=== PATIENT | male | born 1960 | race African-American/Black ===

== ENCOUNTER 2020-04-08 10:14 | Outpatient (REF) | payer MEDICAID, SELFPAY | END 2020-04-08 10:15 | disposition home or self-care (01) | LOC: HO.LAB 10:14 | PROVIDERS: Visit Provider Internal Medicine | DX: Z20.828 Contact with and (suspected) exposure to other viral communicable diseases (principal) | CPT/HCPCS: C9803; U0003 ==

== ENCOUNTER 2022-11-18 09:17 | Outpatient (REF) | payer MEDICAID, SELFPAY ==
[2022-11-18 12:44] LABS: Anion Gap 12 (12-20); Blood Urea Nitrogen 15 mg/dL (9-16); Calcium 9.7 mg/dL (8.4-10.2); Carbon Dioxide 28 mmol/L (22-29); Chloride 106 mmol/L (96-108); Estimated Glomerular Filt Rate > 60; Glucose Random 93 mg/dL (60-115); Potassium 4.2 mmol/L (3.3-5.1); Sodium 142 mmol/L (135-145)
== END 2022-11-18 09:18 | disposition home or self-care (01) ==
LOC: HO.HHCL 09:17
PROVIDERS: Visit Provider Family Medicine
DX: E87.5 Hyperkalemia (principal)
CPT/HCPCS: 36415; 80048

== ENCOUNTER 2022-11-18 13:33 | Outpatient (AMB) | payer MEDICAID, SELFPAY ==
--- NOTE | 2022-11-18 09:33 | MHC.OFFVIS ---
Intake Intake Visit Reasons: LDCT SD HPI LDCT SD HPI Details Initial visit for this 62yo smoker with a 25PYH. Patient has been smoking since age 12 for 50 years at 1/2ppd. . Denies marijuana use. Denies second hand smoke exposure. Denies exposure to chemicals or substances like asbestos. . Denies known family history of lung cancer. Denies personal history of cancers. Denies chest CT in last year. . Denies recent travel outside the [place]. Denies recent respiratory illness or recent hospitalization for respiratory issues. Denies testing positive for COVID. Admits receiving COVID Vaccine. x 3. . Denies fever, chills, new/worsening cough, hemoptysis, hoarseness or dysphagia. Denies significant chest pain, significant dyspnea or unintentional weight loss. Patient Lung Cancer Screening Questionnaire reviewed with patient by provider. . Shared Decision Making Completed. Patient meets criteria. Discussed in detail with patient, the risk vs benefit of LDCT screening. Patient consents to proceed with scan. Discussed smoking cessation. [facility] Medical History (Updated 11/18/22 @ 13:43 by Lily Rodriguez PA-C) Depression with anxiety Hyperlipidemia IFG (impaired fasting glucose) Nicotine dependence, cigarettes, uncomplicated Osteoarthritis Prosthetic eye globe Surgical History (Updated 11/18/22 @ 13:43 by Lily Rodriguez PA-C) History of colonoscopy History of eye surgery Social History (Updated 11/18/22 @ 13:33 by Lily Rodriguez PA-C) Patient Tobacco Use Status: Current everyday Tobacco user Cigarettes Per Day: 10 Years Smoked: (onset 12yo, 1/2ppd x 50yrs, 25pyh) Assessment & Plan Assessment & Plan (1) Nicotine dependence, cigarettes, uncomplicated: Comment: (current smoker - onset 12yo, 1/2ppd x 50yrs, 25pyh) Code(s): F17.210 - Nicotine dependence, cigarettes, uncomplicated Plan: - SDM visit completed today in office. - Patient meets criteria for LDCT for lung cancer screening purposes and is asymptomatic. - Smoking cessation counseling offered. Patients can always call [phone]. - Will arrange for a LDCT scan of the chest for screening purposes at [facility]. - Risks, benefits, and alternatives were discussed in detail and the patient agrees to proceed. - Risks discussed include but are not limited to: radiation exposure, anxiety during testing and while awaiting results, false negatives, false positives and possibility of additional intervention such as further imaging or surgical procedures for benign disease. - Benefits are obviously detection of lung cancer at an early stage which can lead to improved outcomes. - Discussed the importance of screening program compliance with adherence to yearly LDCT scan as scheduled - or sooner interval scans for personalized screening regimen. - Discussed follow up plan. Our office will send a letter discussing results and if needed set up phone call and office visit based on CT findings. - Patient educated on results categorization and the management decisions for suspicious findings potentially found on the screening LDCT scan. Any patient with a Lung RADS score of 3 or 4 will be reviewed by a multidisciplinary team at [facility] to form a plan of action in regards to scan findings. - If further work up is warranted for a suspicious lung finding this will be followed by the Lung Cancer Screening program in conjunction with the Thoracic Surgery Department at [facility]. - A copy of the office note and LDCT will be sent to the patient's PCP - as well as documentation on any associated further plans of care. - Incidental findings on LDCT are the PCP's responsibility. These findings are indicated with an S finding on the LDCT Assessment. A note discussing the findings will be sent to the PCP who is then responsible for further management. - All questions answered.? Coding Level of Care Code Lung Cancer Screening [id number] Diagnoses Nicotine dependence, cigarettes, uncomplicated F17.210
== END 2022-11-18 13:59 | disposition home or self-care (01) ==
PROVIDERS: PCP Family Medicine; Visit Provider Physician Assistant Medical
DX: F17.210 Nicotine dependence, cigarettes, uncomplicated (principal)
CPT/HCPCS: G0296

== ENCOUNTER 2022-11-18 14:05 | Outpatient (REF) | payer MEDICAID, SELFPAY ==
--- NOTE | ~2022-11-18 | CT_ITS ---
EXAMINATION: CT CHEST SCREENING CLINICAL INFORMATION: Current smoker. 50 pack History. COMPARISON: None available. TECHNIQUE: Multidetector volumetric CT imaging of the chest is performed without contrast using low dose technique. Additional 2D coronal and sagittal reformatted images and axial 3D maximum intensity projection (MIP) images are generated on the CT workstation. This CT examination was performed using dose optimization techniques as appropriate, variously including the following: *Automated exposure control *Adjustment of mA and/or kV according to patient size (this includes techniques or standardized protocols for targeted exams where dose is matched to indication/reason for exam; i.e. extremities or head) *Use of iterative reconstruction technique DLP: 60 mGy-cm FINDINGS: LUNGS: Mild emphysema. 2 mm right upper lobe 2 mm right upper lobe nodule axial image 258 series 5. 2 mm right upper lobe Pulmonary nodule axial image 190 series 5. 3 mm calcified right upper lobe nodule axial image 275 series 5. 3 mm calcified right middle lobe nodule axial image 324 series 5. 6 mm calcified right lower lobe nodule axial image 408 series 5. MEDIASTINUM: Small calcified right hilar lymph node. No enlarged lymph nodes. Normal heart size. No pericardial effusion. CORONARY ARTERY CALCIFICATION: Present, mild PLEURA: There is no pleural effusion. No pleural mass or thickening. AXILLA: No lymphadenopathy. UPPER ABDOMEN: Small low-attenuation liver lesions, probably representing cysts. OSSEOUS STRUCTURES: Mild degenerative changes of the spine. CT/CT lung screening IMPRESSION: Emphysema. Evidence of old granulomatous disease with small calcified pulmonary nodules and right hilar lymph node. There are also small noncalcified pulmonary nodules. ASSESSMENT: Lung-RADS category 2: Benign RECOMMENDATION: Annual low-dose chest CT follow-up recommended
== END 2022-11-18 14:06 | disposition home or self-care (01) ==
LOC: HO.CT 14:05
PROVIDERS: PCP Family Medicine; Visit Provider Physician Assistant Medical
DX: Z12.2 Encounter for screening for malignant neoplasm of respiratory organs (principal); F17.210 Nicotine dependence, cigarettes, uncomplicated
CPT/HCPCS: 71271; G0296

== ENCOUNTER 2023-06-27 13:07 | Emergency (ER) | payer MEDICARE, MEDICAID, SELFPAY ==
--- NOTE | ~2023-06-27 | CT_ITS ---
EXAMINATION: CT HEAD WITHOUT CONTRAST CT CERVICAL SPINE WITHOUT CONTRAST CLINICAL INFORMATION: Fall. Headache. Evaluate for fracture and hemorrhage. COMPARISON: No relevant prior imaging. TECHNIQUE: Residential Support Worker images were obtained. CT imaging of the head and cervical spine was performed without contrast. Data was reformatted into multiplanar images at the acquisition workstation. This CT examination was performed using dose optimization techniques as appropriate, including one or more of the following: Automated exposure control, iterative reconstruction, and adjustment of technique factors (mA and/or kVp) according to patient size (this includes techniques or standardized protocols for targeted exams where dose is matched to indication/reason for exam). Fleischner Society criteria for the followup of incidental pulmonary nodules was implemented if appropriate. DLP: 1105 mGy-cm. FINDINGS: Head: There is no acute intracranial hemorrhage or abnormal extra-axial collection. No intracranial mass effect or midline shift. Lateral and third ventricles are normal. No hydrocephalus. Garrison-white matter differentiation is preserved and there is no evidence of acute territorial infarct. The calvarium and skull base are intact. Mastoid air cells and middle ear cavities are well aerated. There is moderate paranasal sinus disease primarily affecting the ethmoid air cells and left maxillary sinus. Chronic changes of an old healed right orbital blowout fracture involving the right lamina papyracea. Phthisis bulbi of the right globe. Cervical spine: Spinal alignment is normal. Vertebral body heights are preserved. No acute cervical spine fracture. No abnormal prevertebral soft tissue swelling. Canal patency is not well assessed on this examination due to inherent limitations of CT without intrathecal contrast.. A central disc herniation at C3-C4 causes at least mild canal stenosis. No bony neuroforaminal encroachment. Visualized soft tissues of the neck are unremarkable. Lung apices are clear. CT/CT head/brain wo IV con IMPRESSION: Head: No acute intracranial hemorrhage. Cervical Spine: No acute cervical spine fracture and no posttraumatic spinal subluxation. A central disc herniation at C3-C4 causes at least mild canal stenosis. If there are clinical symptoms of compressive myelopathy then a dedicated cervical spine MRI can be obtained for better anatomic characterization of the cord and canal.
[2023-06-27 13:22] VITALS: BP 135/85; BP 96/61; PULSE 85; PULSE 94; RESP 16; TEMP 36.8; O2SAT 96; BMI 27.0
[2023-06-27 13:33] VITALS: BP 96/61; PULSE 85; RESP 16; TEMP 36.8; O2SAT 96
--- NOTE | 2023-06-27 13:34 | PC.NURSE ---
pt presents to ED from home via EMS. pt is awake, alert and oriented, breathing even and unlabored, skin warm and dry. pt reports fall at home, fell backwards and hit head on ground, unknown LOC. pt endorses alcohol use today, reports 4 nips after being sober for 18 years. pt reports he started drinking again due to feeling depressed, denies any SI/HI. pt collared via EMS, pt denies any head pain, neck pain or injury anywhere.
--- NOTE | 2023-06-27 13:35 | ED.FALL ---
HPI - Fall General Chief Complaint: ETOH/Substance Use Stated Complaint: ETOH,FALL,HI HEAD,-THINNERS PER EMS Time Seen by Provider: 06/27/23 13:10 Source: patient Mode of arrival: EMS Limitations: language barrier (Faroese speaking only, box sorter used) and other (Alcohol intoxication) History of Present Illness HPI Narrative: 63-year-old male with no significant past medical history who presents emergency department for evaluation of depression, alcohol intoxication fall. Patient states that he was sober for 18 years but was recently depressed and decided to drink alcohol today. He states he drank 4 nips of gin. The patient reports falling backwards and striking his head. He is uncertain if he had any loss of consciousness. Patient has no complaints at this time. However, the patient is clearly intoxicated with slurred speech. He denied being ill in any way prior to the fall. Except for alcohol he denies any other drug use. Related Data Allergies Allergy/AdvReac Type Severity Reaction Status Date / Time No Known Allergies Allergy Verified 06/27/23 13:22 Review of Systems Review of Systems: Yes all other systems are reviewed and are negative [facility] Past Medical History [facility] Narrative: Past medical history: None. Social history: He does smoke cigarettes. He states that he drank 4 nips of gin prior to coming to the emergency department he denies drug use. Medical History (Updated 06/27/23 @ 15:58 by Aleksey Prado MD) Prosthetic eye globe Osteoarthritis Depression with anxiety Hyperlipidemia IFG (impaired fasting glucose) Nicotine dependence, cigarettes, uncomplicated Surgical History (Updated 11/18/22 @ 13:43 by Lily Rodriguez PA-C) History of eye surgery History of colonoscopy Social History Social History (Updated 11/18/22 @ 13:33 by Lily Rodriguez PA-C) Alcohol intake: former Patient Tobacco Use Status: Current everyday Tobacco user Cigarettes Per Day: 10 Years Smoked: (onset 12yo, 1/2ppd x 50yrs, 25pyh) Smoked in Last 30 Days: Yes Use of substances other than those prescribed or required for medical reasons: No Advance Directives: No Advance Directives Information Provided: Yes Physical Exam Vital Signs: Vital Signs: Last Vital Signs Temp 98.2 F 06/27/23 13:33 Pulse 85 06/27/23 13:33 Resp 16 06/27/23 13:33 BP 96/61 02/20/24 13:33 Pulse Ox 96 06/27/23 13:33 O2 Del Method Room Air 06/27/23 13:33 BMI result Body Mass Index 27.0 Vital signs were normal Exam: General: Awake, alert in no distress, slurred speech, appeared intoxicated Head: Normocephalic, atraumatic EENT: PERRL, Lids normal, sclera normal, conjunctiva normal, nose normal , ears normal, throat without erythema or exudates Neck: Supple, no adenopathy Lung: breath sounds symmetric, no wheezing, rales or rhonchi Chest: symmetric movement, nontender Heart: regular rate and rhythm, normal S1, S2 no murmurs or rubs Abdomen: soft, non-tender, nondistended, normal bowel sounds Back: no vertebral tenderness, no CVAT Extremities: no deformities, moves all extremities symmetrically Neuro: Awake, alert, oriented, slurred speech, cranial nerves intact, moves all extremities symmetrically Psych: Pleasant, cooperative Medical Decision Making Medical Decision Making MDM Narrative: 63-year-old male with a history of being sober for 18 years who presents emergency department for evaluation of depression and drinking 4 nips of alcohol, fall at home with head injury, unknown if the patient had any loss of consciousness. Vital signs were normal. Patient appears to be intoxicated. Exam was otherwise unremarkable. Following evaluation was ordered: CBC, CMP, lipase, PTT, CT scan of the head, CT scan of the cervical spine Differential diagnosis: Includes but is not limited to closed head injury, skull fracture, intracranial bleed, neck sprain, cervical fracture, alcohol intoxication, electrolyte abnormalities, anemia 15:54 CT scan of the patient's head and cervical spine revealed no acute findings. Patient refused blood work. Patient's findings are consistent with acute alcohol intoxication causing his fall and closed head injury with no significant abnormalities on CT scan of the head or neck Patient will be discharged home. Admission/Observation Consideration of admission/observation: Escalation of care including admission/observation considered Radiology Impression Discussion of test interpretation with radiology: I have reviewed the radiologist's reading. Radiologist Impression: CT head and cervical spine wo IV con IMPRESSION: Head: No acute intracranial hemorrhage. Cervical Spine: No acute cervical spine fracture and no posttraumatic spinal subluxation. A central disc herniation at C3-C4 causes at least mild canal stenosis. If there are clinical symptoms of compressive myelopathy then a dedicated cervical spine MRI can be obtained for better anatomic characterization of the cord and canal. Dictated By: Dinesh Yarbrough MD Discharge Plan Discharge Clinical Impression: Acute alcohol intoxication Qualifiers: Complication of substance-induced condition: uncomplicated Qualified Code(s): F10.920 - Alcohol use, unspecified with intoxication, uncomplicated Fall Qualifiers: Encounter type: initial encounter Qualified Code(s): W19.XXXA - Unspecified fall, initial encounter Closed head injury Qualifiers: Encounter type: initial encounter Qualified Code(s): S09.90XA - Unspecified injury of head, initial encounter Patient Disposition: Home, Self-Care Instructions: Head Injury (ED), Abuse of Alcohol (ED) Additional Instructions: The CT scan of your head and neck revealed no fractures or bleeding in the brain which is reassuring. Your presentation is consistent with alcohol intoxication, you should consider getting help with your alcohol use disorder. Please follow the head injury and alcohol instructions Follow-up with your doctor in 2 days. Please return to the emergency department if your symptoms get worse or if you develop any symptoms that are concerning to you.
== END 2023-06-27 16:13 | disposition home or self-care (01) ==
PROVIDERS: Emergency Provider Emergency Medicine Emergency Medical Services; PCP Family Medicine
DX: S09.90XA Unspecified injury of head, initial encounter (principal); F10.920 Alcohol use, unspecified with intoxication, uncomplicated; Y90.8 Blood alcohol level of 240 mg/100 ml or more; F17.210 Nicotine dependence, cigarettes, uncomplicated; R51.9 Headache, unspecified; M54.2 Cervicalgia; W01.0XXA Fall on same level from slipping, tripping and stumbling without subsequent striking against object, initial encounter; Y93.9 Activity, unspecified; Y92.9 Unspecified place or not applicable; Y99.9 Unspecified external cause status
CPT/HCPCS: 70450; 72125; 99284

== ENCOUNTER 2023-12-13 08:19 | Outpatient (REF) | payer OTHER, SELFPAY ==
[2023-12-13 11:34] LABS: Estimated Average Glucose 105 mg/dL; Hemoglobin A1c % 5.3 % (<6.0)
[2023-12-13 11:36] LABS: Alanine Aminotransferase 19 U/L (0-40); Albumin Level 4.3 g/dL (3.5-5.0); Alkaline Phosphatase 62 U/L (39-117); Anion Gap 10 (12-20); Aspartate Amino Transferase 21 U/L (5-37); Bilirubin Total 0.3 mg/dL (0.0-1.0); Blood Urea Nitrogen 13 mg/dL (9-16); Calcium 9.4 mg/dL (8.4-10.2); Carbon Dioxide 27 mmol/L (22-29); Chloride 109 mmol/L (96-108); Cholesterol 169 mg/dL (<200); Estimated Glomerular Filt Rate > 60; Glucose Random 84 mg/dL (60-115); HDL Cholesterol 50 mg/dL (>40); LDL Cholesterol Calculated 103 mg/dL (<100); Potassium 4.2 mmol/L (3.3-5.1); Sodium 142 mmol/L (135-145); Total Protein 6.9 g/dL (6.5-8.0); Triglycerides 82 mg/dL (<150)
[2023-12-13 11:54] LABS: Hepatitis A Antibody IgG REACTIVE (Nonreactive); ~Hepatitis A Antibody IgG 7.78 S/CO (0.00-0.99)
[2023-12-13 11:57] LABS: HBS Num1 0.46 mIU/mL (0-7.99); HBc Num1 0.15 S/CO (0.00-0.79); Hepatitis B Core Antibody Nonreactive (Nonreactive); Hepatitis B Surface Antigen Negative (Negative); ~HepC Num1 0.12 S/CO (0.00-0.79); ~Hepatitis B Surface Antibody NONREACTIVE (Nonreactive); ~Hepatitis C Antibody Nonreactive (Nonreactive)
[2023-12-13 14:06] LABS: Reflex LDLD? No
== END 2023-12-13 08:20 | disposition home or self-care (01) ==
LOC: HO.HHCL 08:19
PROVIDERS: Visit Provider Family Medicine
DX: R03.0 Elevated blood-pressure reading, without diagnosis of hypertension (principal); E78.5 Hyperlipidemia, unspecified; Z01.84 Encounter for antibody response examination; R73.01 Impaired fasting glucose
CPT/HCPCS: 36415; 80053; 80061; 83036; 86704; 86706; 86708; 86803; 87340

== ENCOUNTER 2024-11-01 22:14 | Emergency (ER) | payer OTHER, SELFPAY ==
--- NOTE | 2024-11-01 22:15 | ECG_ITS ---
Test Reason : CHEST PAIN Blood Pressure : */* mmHG Vent. Rate : 75 BPM Atrial Rate : 75 BPM P-R Int : 154 ms QRS Dur : 80 ms QT Int : 386 ms P-R-T Axes : 55 67 72 degrees QTcB Int : 431 ms Normal sinus rhythm Normal ECG No previous ECGs available Referred By: Generic ED Physician Electronically Signed By: TYALOR AUGUSTE
--- NOTE | 2024-11-01 22:40 | ED_ITS ---
HPI - Psych General Chief Complaint: ETOH/Substance Use Stated Complaint: chest pain Time Seen by Provider: 11/01/24 22:22 Source: patient Mode of arrival: ambulatory Limitations: no limitations History of Present Illness ED Provider: Dr. Giovanna Smith HPI Narrative: Patient comes to the emergency room complaining of depression. Patient states and he has a bit of chest pain but he states not real chest pain, it is mostly the depression that is hurting. According to the patient, he has a loving family that it is very supportive, both and daughter, siblings. Patient states that he used to be an alcoholic, has been sober for several years, had 1 drink and that affected him severely, triggering the depression. Patient states he has been very depressed for about 2 weeks. Patient denies SI or HI. However, patient states that he will like to be seen by the care team Related Data Home Medications ?Medication ?Instructions ?Recorded ?Confirmed escitalopram oxalate 5 mg tablet 5 mg PO DAILY 5 11/02/24 simvastatin 40 mg tablet 40 mg PO BEDTIME 11/02/24 tizanidine 4 mg tablet 4 mg PO BEDTIME PRN Muscle S pasm 11/03/24 11/03/24 Allergies Allergy/AdvReac Type Severity Reaction Status Date / Time No Known Allergies Allergy Verified 11/01/24 23:15 Review of Systems 2 Review of Systems: Constitutional : No Weight loss, No Fever, No Chills, No Night Sweats, No Fatigue, No Malaise ENT/Mouth : No Hearing loss, No Ear Pain, No Nasal Congestion, No Sinus Pain, No Hoarseness, No sore throat, No Rhinorrhea, No Swallowing Difficulty Eyes: No Eye Pain, No Swelling, No Redness, No Foreign Body, No Discharge, No Vision Changes Cardiovascular : No Chest Pain, No SOB, No Dyspnea on Exertion, No Orthopnea, No Edema, No Palpitations Respiratory : No Cough, No Sputum, No Wheezing, No Smoke Exposure, No Dyspnea Gastrointestinal : No Nausea, No Vomiting, No Diarrhea, No Constipation, No abdominal Pain, No Hematochezia, No Melena Genitourinary : no irregular bleeding, No Dysuria, No Urinary Frequency, No Hematuria, No Urinary Incontinence, No Urgency, No Flank Pain, No Urinary Flow Changes, No Hesitancy Musculoskeletal : No joint pain, No Myalgias, No Joint Swelling Skin : No Skin Lesions, No rash Neuro : No Weakness, No Numbness, No Paresthesias, No Loss of Consciousness, No Dizziness, No Headache Psych : No Anxiety/Panic, complaining of depression, no SI or HI, at bedside he used to alcohol dependent, had 1 drink and his triggers with depression Heme/Lymph: No Bruising, No Bleeding,No Lymphadenopathy Endocrine : No Polyuria, No Polydipsia, No Temperature Intolerance [facility] Past Medical History Medical History Prosthetic eye globe Osteoarthritis Depression with anxiety Hyperlipidemia IFG (impaired fasting glucose) Nicotine dependence, cigarettes, uncomplicated Surgical History (Updated 11/18/22 @ 13:43 by Lily Rodriguez PA-C) History of eye surgery History of colonoscopy Social History Social History (Updated 11/18/22 @ 13:33 by Lily Rodriguez PA-C) Alcohol intake: current Alcohol intake frequency: 3 or more drinks per day Alcohol type: hard liquor Patient Tobacco Use Status: Current everyday Tobacco user Cigarettes Per Day: 10 Years Smoked: (onset 12yo, 1/2ppd x 50yrs, 25pyh) Smoked in Last 30 Days: Yes Use of substances other than those prescribed or required for medical reasons: No Advance Directives: No Advance Directives Information Provided: Yes Do you have a plan to hurt others: No Plan Physical Exam 2 Vital Signs: Vital Signs: Last Vital Signs Temp 97.8 F 11/03/24 06:09 Pulse 65 11/03/24 06:09 Resp 17 11/03/24 06:09 BP 147/70 H 11/03/24 06:09 Pulse Ox 99 11/03/24 06:09 O2 Del Method Room Air 11/03/24 06:09 BMI result Body Mass Index 27.3 Const: Other: Appearance: Alert. Oriented X3. No acute distress. Eyes: Pupils equal, round and reactive to light. ENT: Pharynx normal. Neck: Normal inspection. Neck supple. No lymph nodes noted. No crepitus CVS: Normal heart rate and rhythm. Pulses normal. Normal S1 and S2 Respiratory: No respiratory distress. Breath sounds normal. No Wheezing. No rales Abdomen: Soft and nontender. No rigidity. No distention. Skin: Skin warm and dry. Normal skin color. Normal skin turgor. Extremities: No lower extremity edema. No Lacerations. No Rash Neuro: Oriented X 3. No motor deficit. No sensory deficit. Moving all extremities. No slurred speech. CN 2 through 12 grossly intact Psych: calm, cooperative, a bit tearful Course Course Course Narrative: Patient initially came in complaining of chest pain. However, patient states it is not true chest pain. Is mostly that depression that is making him hurt. Patient denies SI or HI. Requesting to be seen by the care team. All of patient's labs pending Care team consult pending Patient is not SI or HI, Section 12 is not indicated Physician observation started at 22:43 Reevaluation(s) Reevaluation #1: 11/02/2024 9;48 DR. Dyson's progress note: 64-year-old male came in for depression, no SI, no HI, care team input is appreciated recommending admission, patient was made section 12. Bed search is underway, continue with physician observation. Time: 09:48 Reevaluation #2: 11/03/2024 10;00, DR. Dyson's Progress note: VSS, labs were reviewed within baseline, care team input is appreciated, patient is section 12 now and bed search is underway, will continue with physician observation. Time: 10:00 Reevaluation #3: 11/03/2024 15:16 DR. Dyson's progress note, VSS, patient is AAO x3, no SI, no HI, no hallucination, will be going home with his significant other feels safe to be discharged. Discontinue physician observation now. Time: 15:06 Medications Administered Discontinued Medications Generic Name Dose Route Start Last Admin Trade Name Freq PRN Reason Stop Dose Admin Diphenhydramine HCl 50 mg 11/02/24 20:51 11/02/24 20:54 Diphenhydramine Hcl 25 Mg Capsule PO 11/02/24 20:52 50 mg ONCE ONE Administration Hydroxyzine HCl 25 mg 11/03/24 10:42 11/03/24 10:46 Hydroxyzine Hcl 25 Mg Tablet PO 11/03/24 10:43 25 mg ONCE ONE Administration Lorazepam 2 mg 11/01/24 23:31 11/02/24 00:07 Lorazepam 1 Mg Tablet PO 11/01/24 23:32 2 mg ONCE ONE Administration Nicotine 21 mg 11/02/24 08:43 11/02/24 11:07 Nicotine 21 Mg Patch.Td24 TRANSDERMA 11/02/24 08:44 21 mg ONCE ONE Administration Nicotine 21 mg 11/03/24 06:17 11/03/24 08:34 Nicotine 21 Mg Patch.Td24 TRANSDERMA 11/03/24 06:18 21 mg ONCE ONE Administration Medical Decision Making Medical Decision Making MDM Narrative: My interpretation of EKG: Normal sinus rhythm, heart rate 75, no ST segment depression or elevation, no T-wave inversion, QTC 431 Lab Data 11/01/24 23:50 11/01/24 23:50 Labs: Lab Results 11/01/24 11/02/24 Range/Units 23:50 06:50 WBC 7.9 (4.8-10.8) X10*3/uL RBC 4.06 L (4.60-5.80) X10*6/uL Hgb 13.7 L (14.0-18.0) g/dl Hct 38.9 L (42.0-52.0) % MCV 95.8 (80.0-98.0) fL MCH 33.7 H (27.0-33.0) pg MCHC 35.2 (31.0-36.0) g/dl RDW 12.8 (11.0-16.0) % Plt Count 401 H (160-400) X10*3/uL MPV 9.1 L (9.4-12.4) fL Immature Gran % (Auto) 0.6 H (0.0-0.4) % Neut % (Auto) 51.1 (45-73) % Lymph % (Auto) 29.5 (20-40) % [place] % (Auto) 8.6 (2-11) % Eos % (Auto) 9.3 H (0-4) % Baso % (Auto) 0.9 (0-2) % Lymph # (Auto) 2.3 (1.2-4.9) X10*3/uL [place] # (Auto) 0.7 (0.1-1.2) X10*3/uL Eos # (Auto) 0.7 H (0.0-0.4) X10*3/uL Baso # (Auto) 0.1 (0.0-0.2) X10*3/uL Abs Immat Gran (auto) 0.05 H (0.00-0.03) X10*3/uL Absolute Neuts (auto) 4.0 (2.0-8.3) x10*3/uL Absolute Nucleated RBC 0.000 (0.0-0.012) X10*3/uL Nucleated RBC % (auto) 0.0 (0.0-0.2) /100WBC Sodium 143 (135-145) mmol/L Potassium 4.4 (3.3-5.1) mmol/L Chloride 111 H (96-108) mmol/L Carbon Dioxide 24 (22-29) mmol/L Anion Gap 12 (12-20) BUN 13 (9-16) mg/dL Creatinine 0.72 (0.5-1.4) mg/dL Estim Creat Clear Calc 100.9 Estimated GFR > 60 Random Glucose 96 (60-115) mg/dL Calcium 8.6 D (8.4-10.2) mg/dL Magnesium 2.4 (1.6-2.6) mg/dL Total Bilirubin 0.3 (0.0-1.0) mg/dL Direct Bilirubin 0.1 (0.0-0.5) mg/dL AST 46 H (5-37) U/L ALT 27 (0-40) U/L Alkaline Phosphatase 68 (39-117) U/L Troponin I High Sens < 2.7 (<3.5-35.0) ng/L Total Protein 6.6 (6.5-8.0) g/dL Albumin 3.9 (3.5-5.0) g/dL Urine Color Yellow Urine Appearance Clear Urine pH 6.0 (5.0-9.0) Ur Specific [place] 1.020 (1.005-1.025) Urine Protein Negative (Neg-Trace) mg/dL Urine Glucose (UA) Negative (Negative) mg/dL Urine Ketones Negative (Negative) mg/dL Urine Blood Negative (Negative) Urine Nitrite Negative (Negative) Ur Leukocyte Esterase Negative (Negative) Urine Opiates Screen Not Detected (Not Detect) Ur Buprenorphine Scrn Not Detected (Not Detect) ng/mL Ur Oxycodone Screen Not Detected (Not Detect) ng/mL Urine Methadone Screen Not Detected (Not Detect) ng/mL Urine Fentanyl Screen Not Detected (Not Detect) Ur Barbiturates Screen Not Detected (Not Detect) Ur Phencyclidine Scrn Not Detected (Not Detect) Ur Amphetamines Screen Not Detected (Not Detect) U Benzodiazepines Scrn Not Detected (Not Detect) Urine Cocaine Screen Not Detected (Not Detect) U Marijuana (THC) Screen Not Detected (Not Detect) Ethyl Alcohol 230 mg/dL Discharge Plan Discharge Clinical Impression: Depression, Alcohol intoxication Patient Disposition: Home, Self-Care Instructions: Alcohol Intoxication (DC) Prescriptions: No Action simvastatin 40 mg tablet 40 mg PO BEDTIME escitalopram oxalate 5 mg tablet 5 mg PO DAILY tizanidine 4 mg tablet 4 mg PO BEDTIME PRN (Reason: Muscle Spasm) Print Language: Tuvaluan
[2024-11-01 23:03] VITALS: BP 119/77; BP 125/58; PULSE 70; PULSE 80; RESP 18; TEMP 36.7; O2SAT 100; O2SAT 97; BMI 27.3
[2024-11-01 23:53] LABS: MANUAL DIFF FLAG NO
[2024-11-01 23:58] LABS: Basophils Absolute Auto 0.1 X10*3/uL (0.0-0.2); Basophils Percent Auto 0.9 % (0-2); Eosinophils Absolute Auto 0.7 X10*3/uL (0.0-0.4); Eosinophils Percent Auto 9.3 % (0-4); Hematocrit 38.9 % (42.0-52.0); Hemoglobin 13.7 g/dl (14.0-18.0); Imm Gran Abs Auto 0.05 X10*3/uL (0.00-0.03); Imm Gran Pct Auto 0.6 % (0.0-0.4); Lymphocytes Absolute Auto 2.3 X10*3/uL (1.2-4.9); Lymphocytes Percent Auto 29.5 % (20-40); Mean Corpuscular HGB Conc 35.2 g/dl (31.0-36.0); Mean Corpuscular Hemoglobin 33.7 pg (27.0-33.0); Mean Corpuscular Volume 95.8 fL (80.0-98.0); Mean Platelet Volume 9.1 fL (9.4-12.4); Monocytes Absolute Auto 0.7 X10*3/uL (0.1-1.2); Monocytes Percent Auto 8.6 % (2-11); Neutrophils Percent Auto 51.1 % (45-73); Platelet Count 401 X10*3/uL (160-400); Red Blood Count 4.06 X10*6/uL (4.60-5.80); Red Cell Distribution Width 12.8 % (11.0-16.0); White Blood Count 7.9 X10*3/uL (4.8-10.8)
[2024-11-02] MEDS: LORazepam 1 MG TABLET 2 MG PO (00:07)
[2024-11-02 00:15] LABS: Albumin Level 3.9 g/dL (3.5-5.0); Anion Gap 12 (12-20); Bilirubin Direct 0.1 mg/dL (0.0-0.5); Bilirubin Total 0.3 mg/dL (0.0-1.0); Blood Urea Nitrogen 13 mg/dL (9-16); Calcium 8.6 mg/dL (8.4-10.2); Carbon Dioxide 24 mmol/L (22-29); Chloride 111 mmol/L (96-108); Creatinine Clr Calc Pharmacy 100.9; Estimated Glomerular Filt Rate > 60; Glucose Random 96 mg/dL (60-115); Magnesium 2.4 mg/dL (1.6-2.6); Potassium 4.4 mmol/L (3.3-5.1); Sodium 143 mmol/L (135-145); Total Protein 6.6 g/dL (6.5-8.0)
[2024-11-02 00:16] LABS: Alkaline Phosphatase 68 U/L (39-117); Aspartate Amino Transferase 46 U/L (5-37); Ethanol 230 mg/dL
[2024-11-02 00:44] LABS: Alanine Aminotransferase 27 U/L (0-40); Troponin-I High Sensitivity < 2.7 ng/L (<3.5-35.0)
[2024-11-02 02:18] VITALS: BP 107/55; PULSE 74; RESP 19; TEMP 36.9; O2SAT 96
--- OUTSIDE RECORDS SUMMARY | 2024-11-02 03:43 | XMS_ITS | Encounter Summary ---
Author Organization [employer] Address [address] [place] [address] [address] [place] [address] Care Team Providers Care Telephone Order Clerk Room Service Name Role Phone Allie Lyons MD Primary Care Provider [phone] David Bruner PharmD Unavailable [phone] Encounter Details Date Type Department Care Team (Late st Contact Info) Description 06/15/2022 Orders Only [facility] CH[facility] MED & PEDS [address] [place] [address] Saba Webb LPN Social History Tobacco Use Types Packs/Day Years Used Date Smoking Tobacco: Never Assessed Sex and Gender Information Value Date Recorded Sex Assigned at Male 03/07/2022 10:20 AM EDT Legal Sex Male 10:20 AM EDT Gender Identity Male 03/07/2022 10:20 AM EDT Sexual Orientation Straight 03/07/2022 10 :20 AM EDT documented as of this encounter Plan of Treatment Upcoming Encounters Date Type Department Care Team (Late st Contact Info) Description 12/25/2024 10:00 AM EDT Office Visit [facility] ADULT DENTAL [address] [place] [address] Rachel Tran [address] [place] [address] documented as of this encounter Visit Diagnoses Not on filedocumented in this encounter Care Teams Telephone Order Clerk Room Service Relationship Specialty Start Date End Date Allie Lyons MD [address] [place] [address] PCP - General Family Medicine 05/08/18 David Bruner, PharmD [address] [place] [address] Pharmacist Internal Medicine 03/20/23 documented as of this encounter
[2024-11-02 07:12] LABS: Amphetamine Screen Urine Not Detected (Not Detect); Appearance Urine Clear; Barbiturates, Urine Not Detected (Not Detect); Benzodiazepines Screen Urine Not Detected (Not Detect); Buprenorphine Scr Not Detected (Not Detect); Cannabinoid Screen Urine Not Detected (Not Detect); Cocaine Screen Urine Not Detected (Not Detect); Color Urine Yellow; Fentanyl, urine Not Detected (Not Detect); Glucose Urine UA Negative (Negative); Leukocyte Esterase Urine Negative (Negative); Methadone Screen, Urine Not Detected (Not Detect); Nitrite Urine Negative (Negative); Opiate Screen Urine Not Detected (Not Detect); Oxycodone Screen Urine Not Detected (Not Detect); Phencyclidine Screen Urine Not Detected (Not Detect); Urine Blood Negative (Negative); Urine Ketones Negative (Negative); Urine Protein Negative (Neg-Trace)
[2024-11-02] MEDS: Nicotine 21 MG PATCH.TD24 TRANSDERMA (11:07)
[2024-11-02 11:15] VITALS: BP 115/60; PULSE 59; RESP 16; TEMP 36.7; O2SAT 96
[2024-11-02 20:00] VITALS: BP 142/79; PULSE 60; RESP 15; TEMP 36.7; O2SAT 100
[2024-11-02] MEDS: diphenhydrAMINE HCL 25 MG CAPSULE 50 MG PO (20:54)
[2024-11-03 06:09] VITALS: BP 147/70; PULSE 65; RESP 17; TEMP 36.6; O2SAT 99
--- NOTE | 2024-11-03 07:41 | PC.NURSE ---
Assumed care of patient at 0645, patient appears to be in no apparent distress this am, resting on couch comfortably, offering no complaints to this RN. Continue plan of care for IPLOC
--- NOTE | 2024-11-03 07:43 | PHA.MEDREC ---
Pharmacy Consult ? Medication Reconciliation Pharmacy has completed the medication reconciliation. Reviewed med rec done by nursing
[2024-11-03] MEDS: Nicotine 21 MG PATCH.TD24 TRANSDERMA (08:34)
[2024-11-03] MEDS: hydrOXYzine HCL 25 MG TABLET PO (10:46)
--- NOTE | 2024-11-03 10:47 | PC.NURSE ---
pt reporting mild anxiety, requesting medication to help him calm down and potentially sleep. MD Dyson gave verbal order for 25 mg Hydroxyzine
[2024-11-03 15:23] VITALS: BP 139/71; PULSE 77; RESP 14; TEMP 37.2; O2SAT 99
== END 2024-11-03 15:26 | disposition home or self-care (01) ==
PROVIDERS: Emergency Provider Emergency Medicine
DX: R07.89 Other chest pain (principal); F33.1 Major depressive disorder, recurrent, moderate; F10.129 Alcohol abuse with intoxication, unspecified; Y90.7 Blood alcohol level of 200-239 mg/100 ml; Z51.81 Encounter for therapeutic drug level monitoring; Z79.899 Other long term (current) drug therapy
CPT/HCPCS: 36415; 80048; 80076; 80307; 81003; 83735; 84484; 85025; 93005; 99285; S9485

== ENCOUNTER → 2024-11-01 22:15 | Outpatient (BNV) | payer OTHER, SELFPAY | PROVIDERS: Emergency Provider Emergency Medicine; Visit Provider Internal Medicine | DX: R07.9 Chest pain, unspecified (principal) | CPT/HCPCS: 93010 ==

== ENCOUNTER 2025-01-01 12:59 | Outpatient (REF) | payer OTHER, SELFPAY ==
--- NOTE | ~2025-01-01 | CT_ITS ---
EXAMINATION: CT LUNG SCREENING HISTORY: F17.210 - Nicotine dependence, cigarettes, uncomplicated TECHNIQUE: Low dose axial images were obtained from the sternal notch to upper abdomen without IV contrast per standard departmental protocol. Sagittal and coronal reformatted images were also obtained and reviewed. One or more of the following techniques was used for dose reduction: Automated exposure control, adjustment of the mA and/or kV according to patient size, use of iterative reconstruction technique. DLP: 58 mGy-cm COMPARISON: Comparison is made with the prior examination dated 723. FINDINGS: Lung nodules: Again seen are scattered calcified granulomas throughout the lungs. The largest of these is at the right lung base (series 4, image 114). No suspicious pulmonary nodules are identified. Emphysema: none Coronary Calcification: mild Aortic Arch Calcification: mild Potentially Significant Incidentals : none Additional Chest Findings: There is no pleural or pericardial effusion. No mediastinal or axillary lymphadenopathy is identified. Visualized upper abdomen: There is a probable 1.4 cm cyst in the left lobe of the liver. The visualized portions of the spleen and and adrenals have an unremarkable unenhanced appearance. CT/CT lung screening IMPRESSION: No suspicious pulmonary nodules are identified. LUNG-RADS ASSESSMENT: Lung-RADS 2: Benign MANAGEMENT: Continue annual screening with LDCT in 12 months Category S: N/A Electronically signed by: Dinesh Cook MD 01/01/2025 01:43 PM EDT
== END 2025-01-01 13:00 | disposition home or self-care (01) ==
LOC: HO.CT 12:59
PROVIDERS: PCP Family Medicine; Visit Provider Physician Assistant Medical
DX: Z12.2 Encounter for screening for malignant neoplasm of respiratory organs (principal); F17.210 Nicotine dependence, cigarettes, uncomplicated
CPT/HCPCS: 71271

== ENCOUNTER → 2025-01-01 13:01 | Outpatient (BNV) | payer OTHER, SELFPAY | PROVIDERS: PCP Family Medicine; Visit Provider Radiology Diagnostic Radiology | DX: F17.210 Nicotine dependence, cigarettes, uncomplicated (principal) | CPT/HCPCS: 71271 ==

== ENCOUNTER 2025-01-20 08:04 | Outpatient (REF) | payer OTHER, SELFPAY ==
--- OUTSIDE RECORDS SUMMARY | 2025-01-20 08:13 | XMS_ITS | Encounter Summary ---
Author Organization [employer] Address [address] [facility] 7t [place] [address] Care Team Providers Care Quality Assurance Tester Name Role Phone Allie Lyons MD Primary Care Provider [phone] David Bruner PharmD Unavailable [phone] Encounter Details Date Type Department Care Team (Late st Contact Info) Description 01/01/2025 Results Follow-Up [facility] MEDICINE [address] [place], [place] [phone] Allie Lyons MD [address] [place], [place] [phone] CT Lung Screening Low dose Social History Tobacco Use Types Packs/Day Years Used Date Smoking Tobacco: Former Cigarettes 0.3 55.6 1 970 - 01/23/2023 Passive Smoke Exposure: Never Smokeless Tobacco: Never Alcohol Use Standard Drinks/Week Comments Not Currently 0 (1 standard drink = 0.6 oz pur e alcohol) Depression Answer Date Recorded Patient Health Questionnaire-9 Score 1 09/19/2024 Patient Health Questionnaire-9 Score 1 09/19/2024 Last PHQ-9: Questionnaire Data Not on file 0 09/19/2024 Housing Stability Answer Date Recorded What is your housing situation today? I have jc dubon 10/17/[address] you li ve. Do you have problems with any of the following? None of the above 10/17/2023 Food Insecurity Answer Date Recorded Within the past 12 months, y ou worried that your food would run out before you got money to buy more: Never True 10/17/2023 Within the past 12 months,th e food you bought just didn't last and you didn't have enough money to get more: Never True 03/2024 Transportation Answer Date Recorded In the past 12 months, has l ack of transportation kept you from medical appts, meetings, work or from getting things needed for daily living? No 10/17/2023 Utilities Answer Date Recorded In the past 12 months, has t he electric, gas, oil or water company threatened to shut off services in your home? No 10/17/2023 Depression Answer Date Recorded Patient Health Questionnaire-2 Score 0 09/19/2024 Internet Access Answer Date Recorded Internet Access Q1 Yes 09/19/2024 Internet Access Q2 Not on file 09/19/2024 Sex and Gender Information Value Date Recorded Sex Assigned at Male 03/07/2022 10:20 AM EDT Legal Sex Male 10:20 AM EDT Gender Identity Male 03/07/2022 10:20 AM EDT Sexual Orientation Straight 03/07/2022 10 :20 AM EDT documented as of this encounter Plan of Treatment Upcoming Encounters Date Type Department Care Team (Late st Contact Info) Description 01/28/2025 10:45 AM EDT Office Visit [facility] MEDICINE [address] [place] [address] Allie Lyons MD [address] [place] [address] 01/29/2025 9:00 AM EDT Office Visit [facility] ADULT DENTAL [address] [place] [address] Haresh Coreas DDS [address] [place] [address] 07/01/2025 1:00 PM EST Office Visit [facility] ADULT DENTAL [address] [place] [address] Tran Ramos [address] [place] [address] documented as of this encounter Goals Goal Patient Goal Type Associated Problems Recent Progress Patient-Stated? Author Quit using tobacco (cigarettes, smokeless, etc) Tobacco Use On track(03/20/20 23 12:21 PM EST) No David Bruner, ZacharyD documented as of this encounter Visit Diagnoses Not on filedocumented in this encounter Additional Health Concerns Assessment Noted Time PHQ-9 Depression Total Score: 1 09/20/19 25 11:03 AM EDT documented as of this encounter Care Teams Quality Assurance Tester Relationship Specialty Start Date End Date Allie Lyons MD [address] [place] [address] PCP - General Family Medicine 05/08/18 David Bruner, ZacharyD [address] [place] [address] Pharmacist Internal Medicine 03/20/23 documented as of this encounter
--- OUTSIDE RECORDS SUMMARY | 2025-01-20 08:13 | XMS_ITS | Encounter Summary ---
Author Organization [employer] Address [address] [facility] [address] [place] [address] Care Team Providers Care Appian Developer Name Role Phone Allie Lyons MD Primary Care Provider [phone] David Bruner PharmD Unavailable [phone] Reason for Visit * Reason Onset Date Comments Reschedule 03/29/2023 Encounter Details Date Type Department Care Team (Late st Contact Info) Description 03/29/2023 Telephone [facility] MEDICINE [address] [place] [address] Allie Lyons MD [address] [place], [place] [phone] Reschedule Social History Tobacco Use Types Packs/Day Years Used Date Smoking Tobacco: Former Cigarettes 0.3 54 1 970 - 01/23/2023 Passive Smoke Exposure: Never Smokeless Tobacco: Never Depression Answer Date Recorded Patient Health Questionnaire-9 Score 0 09/12/2022 Housing Stability Answer Date Recorded What is your housing situation today? I have jc dubon 02/23/[address] you li ve. Do you have problems with any of the following? None of the above 02/23/2023 Food Insecurity Answer Date Recorded Within the past 12 months, y ou worried that your food would run out before you got money to buy more: Never True 02/23/2023 Within the past 12 months,th e food you bought just didn't last and you didn't have enough money to get more: Never True Transportation Answer Date Recorded In the past 12 months, has l ack of transportation kept you from medical appts, meetings, work or from getting things needed for daily living? No 02/23/2023 Utilities Answer Date Recorded In the past 12 months, has t he electric, gas, oil or water company threatened to shut off services in your home? No 02/23/2023 Depression Answer Date Recorded Patient Health Questionnaire-2 Score 0 09/12/2022 Sex and Gender Information Value Date Recorded Sex Assigned at Male 03/07/2022 10:20 AM EDT Legal Sex Male 10:20 AM EDT Gender Identity Male 03/07/2022 10:20 AM EDT Sexual Orientation Straight 03/07/2022 10 :20 AM EDT documented as of this encounter Miscellaneous Notes * Telephone Encounter - Viktoria Santiago - 03/29/2023 12:28 PM EST Tc from pt requesting r/s 03/29/2023 appt, proposal writer attempted to schedule no availability. documented in this encounter Plan of Treatment Upcoming Encounters Date Type Department Care Team (Late st Contact Info) Description 01/28/2025 10:45 AM EDT Office Visit [facility] MEDICINE [address] [place] [address] Allie Lyons MD [address] [place] [address] 01/29/2025 9:00 AM EDT Office Visit [facility] ADULT DENTAL [address] [place] [address] Haresh Coreas DDS [address] [place] [address] 07/01/2025 1:00 PM EST Office Visit [facility] ADULT DENTAL [address] [place] [address] Tran Ramos [address] [place] [address] documented as of this encounter Goals Goal Patient Goal Type Associated Problems Recent Progress Patient-Stated? Author Quit using tobacco (cigarettes, smokeless, etc) Tobacco Use On track(03/20/20 12:21 PM EST) No David Bruner, PharmD documented as of this encounter Visit Diagnoses Not on filedocumented in this encounter Additional Health Concerns Assessment Noted Time PHQ-9 Depression Total Score: 0 09/13/19 1:45 PM EDT documented as of this encounter Care Teams Appian Developer Relationship Specialty Start Date End Date Allie Lyons MD [address] [place] [address] PCP - General Family Medicine 05/08/18 David Bruner, PharmD [address] [place] [address] Pharmacist Internal Medicine 03/20/23 documented as of this encounter
--- OUTSIDE RECORDS SUMMARY | 2025-01-20 08:13 | XMS_ITS | Encounter Summary ---
Author Organization [employer] Address [address] [place] [address] [address] [place] [address] Care Team Providers Care Home Care Physical Therapist Name Role Phone Allie Lyons MD Primary Care Provider [phone] David Bruner PharmD Unavailable [phone] Encounter Details Date Type Department Care Team (Late st Contact Info) Description 08/24/2022 Orders Only [facility] CH[facility] MED & PEDS [address] [place] [address] Saba Webb LPN Social History Tobacco Use [...] Description 01/28/2025 10:45 AM EDT Office Visit [facility] MEDICINE [address] [place] [address] Allie Lyons MD [address] [place], [place] [phone] 01/29/2025 9:00 AM EDT Office Visit [facility] ADULT DENTAL [address] [place] [address] Haresh Coreas DDS [address] [place], [place] [phone] 07/01/2025 1:00 PM EST Office Visit [facility] ADULT DENTAL [address] [place] [address] Tran Ramos [address] [place] [address] documented as of this encounter Visit Diagnoses Not on filedocumented in this encounter Care Teams Home Care Physical Therapist Relationship Specialty Start Date End Date Allie Lyons MD [address] [place] [address] PCP - General Family Medicine 05/08/18 David Bruner, Ramu [address] [place] [address] Pharmacist Internal Medicine 03/20/23 documented as of this encounter
--- OUTSIDE RECORDS SUMMARY | 2025-01-20 08:13 | XMS_ITS | Encounter Summary ---
Author Organization [employer] Address [address] [place] [address] [address] [place] [address] Care Team Providers Care Customer Success Associate Name Role Phone Allie Lyons MD Primary Care Provider [phone] David Bruner PharmD Unavailable [phone] Encounter Details Date Type Department Care Team (Latest Contact Info) Description 07/08/2019 Abstract [facility] CONVERSIONS Dental, Provider, DDS Social History Tobacco Use Types Packs/Day Years [...] Description 01/28/2025 10:45 AM EDT Office Visit [facility] MEDICINE [address] [place] [address] Allie Lyons MD [address] [place] [address] 01/29/2025 9:00 AM EDT Office Visit [facility] ADULT DENTAL [address] [place] [address] Haresh Coreas DDS [address] [place] [address] 07/01/2025 1:00 PM EST Office Visit [facility] ADULT DENTAL [address] [place] [address] Tran Ramos [address] [place] [address] documented as of this encounter Visit Diagnoses Not on filedocumented in this encounter Care Teams Customer Success Associate Relationship Specialty Start Date End Date Allie Lyons MD [address] [place] [address] PCP - General Family Medicine 05/08/18 David Bruner, ZacharyD [address] [place] [address] Pharmacist Internal Medicine 03/20/23 documented as of this encounter
--- OUTSIDE RECORDS SUMMARY | 2025-01-20 08:13 | XMS_ITS | Clinical Summary ---
Author Organization [employer] Address [address] [place] [address] [address] [place] [address] Care Team Providers Care Sign Painter Name Role Phone Allie Lyons MD Primary Care Provider [phone] David Bruner PharmD Unavailable [phone] Allergies Active Allergy Reactions Criticality Noted Date Comments Tricyclic Antidepressants Unknown Medications ketoconazole (NIZOral) 2 % creamIndication s:Rash APPLY TO THE AFFECTED AREA(S) TWICE DAILY 45 g 1 12/28/19 23 Active Spiriva Respimat 2.5 MCG/ACT inhalerIndicati ons:Pulmonary emphysema, unspecified emphysema type (CMS/HCC) INHALE 2 PUFFS BY MOUTH ONCE DAILY 4 g 10/05/19 24 Active Umeclidinium Barco (Incruse Ellipta) 62.5 MCG/ACT aerosol powder Inhale 1 Inhalation Once per day. 30 each 02/05/20 24 Active Acetaminophen Extra Strength 500 MG tablet TAKE 1 TO 2 TABLETS BY MOUTH EVERY 8 HOURS NEEDED 45 tablet 1 06/06/19 25 Active omeprazole (PriLOSEC) [address] capsuleIndicati ons:Gastroesoph ageal reflux disease, unspecified whether esophagitis present TAKE 1 CAPSULE BY MOUTH EVERY DAY 90 capsule 1 06/11/19 25 Active nicotine polacrilex (Commit) 4 MG lozengeIndicati ons:Tobacco dependence DISSOLVE 1 LOZENGE IN MOUTH EVERY 2 HOURS NEEDED FOR SMOKING CESSATION 144 lozenge 1 06/17/19 25 Active tiZANidine (Zanaflex) 4 MG tablet TAKE 1 TABLET BY MOUTH EVERY DAY AT BEDTIME NEEDED 90 tablet 3 11/08/19 25 Active simvastatin (Zocor) 40 MG tabletIndicatio ns:Dyslipidemia TAKE 1 TABLET BY MOUTH AT BEDTIME 90 tablet 3 11/08/19 25 Active Ventolin HFA 108 (90 Base) MCG/ACT inhalerIndicati ons:Pulmonary emphysema, unspecified emphysema type (CMS/HCC) INHALE 2 PUFFS BY MOUTH EVERY 6 HOURS NEEDED FOR WHEEZING 18 g 11 11/08/19 25 Active escitalopram (Lexapro) 5 MG tablet TAKE 1 TABLET BY MOUTH DAILY 30 tablet 2 01/10/20 25 Active escitalopram (Lexapro) 5 MG tablet Take 1 tablet (5 mg) by mouth Once per day. 30 tablet 2 09/20/19 25 025 Discontinued Active Problems Problem Noted Date Diagnosed Date Abfraction 06/25/2024 Staining of multiple teeth 06/25/2024 Dental calculus 06/25/2024 Excessive attrition of teeth, limited to enamel 05/16/2023 Dental plaque 03/06/2023 Missing teeth, acquired 02/08/2023 Dental caries 02/08/2023 Generalized gingival recession 02/08/2023 Emphysema of lung 12/21/2022 Assessment & Plan (09/20/2024 2:20 AM EDT): - most recent CT showed emphysema - continue working on smoking cessation - LAMA: Sprivia once daily - HEIDY: albuterol HFA prn. Assessment & Plan (10/18/2023 7:22 PM EDT): - most recent CT showed emphysema - continue working on smoking cessation - LAMA: Sprivia once daily - HEIDY: albuterol HFA prn. Assessment & Plan (04/18/2023 7:14 AM EST): - most recent CT showed emphysema - continue working on smoking cessation - LAMA: Sprivia once daily - HEIDY: albuterol HFA prn. Assessment & Plan (03/29/2023 8:24 AM EST): - most recent CT showed emphysema - continue working on smoking cessation - LAMA: Sprivia once daily - HEIDY: albuterol HFA prn. Assessment & Plan (01/02/2023 5:29 AM EDT): - most recent CT showed emphysema - continue working on smoking cessation - start LAMA: Sprivia once daily - HEIDY: albuterol HFA prn. Smoking greater than 30 pack years 09/15/2022 Assessment & Plan (09/20/2024 2:20 AM EDT): - Last CT scan on 11/18/22 BI-RADS 2 - annual screening CT is recommended. Assessment & Plan (01/23/2024 1:27 PM EDT): - Last CT scan on 11/18/22 BI-RADS 2 - annual screening CT is recommended. Assessment & Plan (10/17/2023 6:15 AM EDT): - Last CT scan on 11/18/22 BI-RADS 2 - annual screening CT is recommended. Assessment & Plan (04/18/2023 7:10 AM EST): - Last CT scan on 11/18/22 BI-RADS 2 - annual screening CT is recommended. Assessment & Plan (01/02/2023 5:31 AM EDT): - Last CT scan on 11/18/22 BI-RADS 2 - annual screening CT is recommended. Tobacco dependence 09/12/2022 Assessment & Plan (09/20/2024 2:21 AM EDT): - following with our pharmacist for smoking cessation CDTM - stopped smoking Jan 2023 - Jun 2023 - on nicotine replacement - last lung cancer screening CT in November 2022, repeat in 1 year, followed by [facility] Assessment & Plan (01/23/2024 1:27 PM EDT): - following with our pharmacist for smoking cessation CDTM - stopped smoking Jan 2023 - Jun 2023 - on nicotine replacement - last lung cancer screening CT in November 2022, repeat in 1 year, followed by [facility] Assessment & Plan (10/17/2023 6:16 AM EDT): - following with our pharmacist for smoking cessation CDTM - stopped smoking Jan 2023 - Jun 2023 - on nicotine replacement - last lung cancer screening CT in November 2022, repeat in 1 year, followed by [facility] Assessment & Plan (04/18/2023 7:13 AM EST): - following with our pharmacist for smoking cessation CDTM - early maintenance stage, quit date Jan 2023 - on nicotine replacement - last lung cancer screening CT in November 2022, repeat in 1 year, followed by [facility] Assessment & Plan (03/29/2023 8:26 AM EST): continue working on smoking cessation smoking hx > 35 ppy Seen by lung cancer screening program at [facility] Kept appt for smoking cessation CDTM Assessment & Plan (01/02/2023 5:30 AM EDT): continue working on smoking cessation. smoking hx > 35 ppy Seen by lung cancer screening program at [facility] Refer to smoking cessation CDTM Assessment & Plan (09/12/2022 3:25 PM EDT): continue working on smoking cessation. smoking hx > 35 ppy Will refer for Lung Cancer Screening Normal oral exam 09/12/2022 Assessment & Plan (03/29/2023 8:27 AM EST): -Immunizations: Reviewed. He declines COVID vaccine -Colon cancer screening: Normal 02/16/[address] Contreras -Lung cancer screening: lung RADS 2 in November 2022 -Prostate cancer screening: Normal PSA in September 2022 Assessment & Plan (09/15/2022 5:45 PM EDT): -Immunizations: Reviewed. He declines COVID vaccine -Colon cancer screening: Normal 02/16/[address] 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 Impaired fasting glucose 06/06/2016 Assessment & Plan (01/23/2024 1:26 PM EDT): - 12/13/23 A1C 5.3% - Work on lifestyle modifications Assessment & Plan (10/18/2023 7:23 PM EDT): 09/16/22 A1C 5.4%, improving Work on lifestyle modifications Assessment & Plan (04/18/2023 7:13 AM EST): 09/16/22 A1C 5.4%, improving Work on lifestyle modifications Assessment & Plan (03/29/2023 8:25 AM EST): 09/16/22 A1C 5.4%, improving Work on lifestyle modifications Assessment & Plan (01/02/2023 5:30 AM EDT): 09/16/22 A1C 5.4%, improving Work on lifestyle modifications Assessment & Plan (09/12/2022 1:58 PM EDT): 12/06/19 FBG 97; A1C 5.4%. Work on lifestyle modifications Prehypertension 06/06/2016 Assessment & Plan (09/20/2024 2:20 AM EDT): -Goal BP < 150/90 per JNC-8 and < 130/80 per ACC/AHA guideline -Continue working on lifestyle modifications -Recommended self-monitoring BP. -Follow up in 12 mo, or sooner if any problem arises Assessment & Plan (10/18/2023 7:23 PM EDT): -Goal BP < 150/90 per JNC-8 and < 130/80 per ACC/AHA guideline -Continue working on lifestyle modifications -Recommended self-monitoring BP. -Follow up in 12 mo, or sooner if any problem arises Assessment & Plan (04/18/2023 7:13 AM EST): -Goal BP < 150/90 per JNC-8 and < 130/80 per ACC/AHA guideline -Continue working on lifestyle modifications -Recommended self-monitoring BP. -Follow up in 12 mo, or sooner if any problem arises Assessment & Plan (03/29/2023 8:25 AM EST): -Goal BP < 150/90 per JNC-8 and < 130/80 per ACC/AHA guideline -Continue working on lifestyle modifications -Recommended self-monitoring BP. -Follow up in 12 mo, or sooner if any problem arises Assessment & Plan (01/02/2023 5:29 AM EDT): -Goal BP < 150/90 per JNC-8 and < 130/80 per ACC/AHA guideline -Continue working on lifestyle modifications -Recommended self-monitoring BP. -Follow up in 12 mo, or sooner if any problem arises Assessment & Plan (09/15/2022 5:37 PM EDT): -Goal BP < 150/90 per JNC-8 and < 130/80 per ACC/AHA guideline -Continue working on lifestyle modifications -Recommended self-monitoring BP. 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 - work on smoking cessation Assessment & Plan (01/23/2024 1:26 PM EDT): - Patient has been on venlafaxine for many years, and would like to change to another medication - Taper off venlafaxine - Start escitalopram - work on smoking cessation Assessment & Plan (10/23/2023 9:17 AM EDT): - Patient has been on venlafaxine for many years, and would like to change to another medication - Taper off venlafaxine - Start escitalopram - work on smoking cessation Assessment & Plan (09/15/2022 5:38 PM EDT): - stable with venlafaxine - work on smoking cessation Depressive disorder 02/08/2012 Assessment & Plan (09/20/2024 2:09 PM EDT): - PHQ9 score 1 on 09/19/24 - connected with behavioral health service from [facility], since he had alcohol intoxication and fell in Jun 2023 - Previously on venlafaxine - Currently on escitalopram, which was started in 2023. He does not take it every day. - Continue working with behavioral health service providers - Encouraged to find healthy coping skill, instead of smoking Assessment & Plan (01/23/2024 1:26 PM EDT): - Patient has been on Venlafaxine 75 mg for many years, and is now wants to change - Taper off venlafaxine - Start escitalopram - Alcohol intoxication in Jun 2023, fall - Recently connected with behavioral health service provider, Harriet. - Continue working with behavioral health service providers Assessment & Plan (10/23/2023 9:19 AM EDT): - Patient has been on Venlafaxine 75 mg for many years, and is now wants to change - Taper off venlafaxine - Start escitalopram - Alcohol intoxication in Jun 2023, fall - Recently connected with behavioral health service provider, Harriet. - Continue working with behavioral health service providers Assessment & Plan (09/12/2022 2:13 PM EDT): Continue Venlafaxine 15 mg Dyslipidemia 02/08/2012 Assessment & Plan (09/20/2024 2:19 AM EDT): - Current medication: simvastatin 40 mg qhs. [place]-3. - Most recent lipid profile: 12/13/23, TC 169; TG 82; HDL 50; LDL 103 - According to 2013 ACC/AHA guideline, 10-year ASCVD risk is > 7.5% and moderate to high-intensity statin therapy is recommended. Will consider changing to atorvastatin or rosuvastatin in the future. Assessment & Plan (01/23/2024 1:27 PM EDT): - Current medication: simvastatin 40 mg qhs. [place]-3. - Most recent lipid profile: 12/13/23, TC 169; TG 82; HDL 50; LDL 103 - According to 2013 ACC/AHA guideline, 10-year ASCVD risk is > 7.5% and moderate to high-intensity statin therapy is recommended. Will consider changing to atorvastatin or rosuvastatin in the future. Assessment & Plan (10/18/2023 7:25 PM EDT): Current medication: simvastatin 40 mg qhs. [place]-3. Most recent lipid profile: 09/12/22 TC 213; TG 162; HDL 62; LDL 123 According to 2013 ACC/AHA guideline, 10-year ASCVD risk is > 7.5% and moderate to high-intensity statin therapy is recommended. Will consider changing to atorvastatin or rosuvastatin in the future. Assessment & Plan (01/02/2023 5:33 AM EDT): Current medication: simvastatin 40 mg qhs. [place]-3. Most recent lipid profile: 09/12/22 TC 213; TG 162; HDL 62; LDL 123 According to 2013 ACC/AHA guideline, 10-year ASCVD risk is > 7.5% and moderate to high-intensity statin therapy is recommended. Will consider changing to atorvastatin or rosuvastatin in the future. Assessment & Plan (09/12/2022 1:55 PM EDT): Current medication: simvastatin 40 mg qhs. [place]-3. Most recent lipid profile: 12/06/19 TC 163; TG 58; HDL 60; LDL 89 According to 2013 ACC/AHA guideline, 10-year ASCVD risk is 11% and moderate to high-intensity statin therapy is recommended. According to ATPIII guideline, pt's goal LDL is < 160. We discussed about changing to higher potency statin at last visit. His most recent lipid profile showed some improvement in ASCVD risk and he has been working on smoking cessation. Therefore, we will continue simvastatin. Emphasized the importance of lifestyle modification. Repeat fasting lipid profile in 1 year. Osteoarthritis 02/08/2012 Assessment & Plan (09/12/2022 2:12 PM EDT): Judicious use of acetaminophen -will change muscle relaxant, Cyclobenzaprine to Tizanidine Encounters Date Type Department Care Team Description 01/09/2025 Refill [facility] [address] [place] [phone] Allie Lyons MD 01/01/2025 Results Follow-Up [facility] [address] [place] [phone] Lung Screening Low dose 01/01/2025 Orders Only [facility] External Provider, [facility] 12/25/2024 10:00 AM EDT Office Visit [facility] [address] [place] [phone] Tran Ramos Tooth abrasion (Primary Dx); Missing teeth, acquired; Excessive attrition of teeth, limited to enamel; Staining of multiple teeth; Abfraction; Generalized gingival recession; Dental plaque; Encounter for dental examination 12/17/2024 Telephone [facility] [address] [place] [phone] Allie Lyons MD 12/16/[address] [address] Allie Lyons MD Medication Question 11/06/2024 Refill [facility] [address] [place] [phone] Allie Lyons MD Dyslipidemia; Pulmonary emphysema, unspecified emphysema type (CMS/HCC) from Last 3 Months Immunizations Immunization Administration Dates Next Due Hep B, adult 01/23/2024 Influenza Injectable Quadriv alant Preservative Free IIV4 MDCK 03/08/2022 Influenza injectable quadriv alent IIV4 with preservative 05/18/2017,04/22/2015 Influenza injectable quadriv alent preservative free 04/18/2023,05/18/2021,03/27/2020,06/17,07/03/2018,06/06/2016 Influenza, High Dose Seasona l, Preservative Free 01/23/2024 Influenza, IIV3, injectable 02/26/2014,0 01/24/2011,03/11/2010,02/28 Influenza, Split (incl. judy fied surface antigen) 01/14/2013,02/08/2012 Pfizer Covid-19 Vaccine 12+ 04/18/2023 Pneumococcal Conjugate PCV 20 05/29/2023 Pneumococcal Polysaccharide PPSV23 02/21/2012 RSV Bivalent 12/15/2023 TD (adult), 2 Lf tetanus tox oid, preservative free, adsorbed 12/14/2007 Tdap 03/08/2022,02/21/2012 Zoster, Recombinant 12/25/2020,10/23/2020 Social History Tobacco Use Types Packs/Day Years Used Date Smoking Tobacco: Former Cigarettes 0.3 55.6 1 970 - 01/23/2023 Passive Smoke Exposure: Never Smokeless Tobacco: Never Tobacco Cessation:Counseling Given: Not Answered Alcohol Use Standard Drinks/Week Comments Not Currently [...] Orientation Straight 03/07/2022 10 :20 AM EDT Last Filed Vital Signs Vital Sign Reading Time Taken Comments Blood Pressure 118/70 12/25/2024 9:51 AM EDT Pulse 63 09/19/2024 11:01 AM EDT Temperature 36.4 C (97.5 F) 09/19/2024 11:01 AM EDT Respiratory Rate 20 09/19/2024 11:01 AM EDT Oxygen Saturation 99% 09/19/2024 11:01 AM EDT Inhaled Oxygen Concentration - - Weight 80.7 kg (178 lb) 09/19/2024 11:01 AM EDT Height 175.3 cm (5' 9 ) 09/19/2024 11:01 AM EDT Body Mass Index 26.29 09/19/2024 11:01 AM EDT Plan of Treatment Upcoming Encounters Date Type Department Care Team (Late st Contact Info) Description 01/28/2025 10:45 AM EDT Office Visit [facility] [address] [place] [address] Allie Lyons MD [address] [place] [address] 01/29/2025 9:00 AM EDT Office Visit [facility] [address] [place] [address] Haresh Coreas DDS [address] [place] [address] 07/01/2025 1:00 PM EST Office Visit [facility] [address] [place] [address] Tran Ramos [address] [place] [address] Health Maintenance Due Date Last Done Comments CT Colonography 1960 FIT DNA/Cologuard 1960 FIT 1960 FOBT 1960 Sigmoidoscopy 1960 Hepatitis B Vaccines (2 of 3 - Risk 3-dose series) 02/20/2024 01/23/2024 COVID-19 Vaccine ( season) 2025 04/18/2023, 07/16/2021, 09/03/2020, Additional history exists Influenza Vaccine (#1) 2025 , 04/18/2023, 03/08/2022, Additional history exists Dental X-Ray: Bitewings 06/26/2025 06/25/19 25, 02/08/2023, 07/08/2020, Additional history exists Dental Oral Exam 06/28/2025 12/25/2024, , 02/08/2023, Additional history exists Dental Prophylaxis 06/28/2025 12/25/2024, 0 06/25/2024, 03/06/2023, Additional history exists Alcohol/Substance Use Screening 09/19/2025 09/19/2024 Depression Screening 09/19/2025 09/19/2024, 09/20/19 25 SDOH Screening 09/19/2025 09/19/2024 Tobacco Screening 12/25/2025 12/25/2024 Lung Cancer Screening 01/01/2026 01/01/2025 Dental X-Ray: Full Mouth 02/09/2026 023, 12/08/2011, 11/24/2011 Colonoscopy 02/17/2028 02/16/2018 Colorectal Cancer Screening 02/17/2028 Lipid Panel 12/12/2028 12/13/2023, 09/05, 12/06/2019 DTaP/Tdap/Td Vaccines (3 - Td or Tdap) 03/08/2032 03/08/2022, 02/21/2012, 12/14/2007 Zoster Vaccines Completed 12/25/2020, 10/23/2020 Pneumococcal Vaccine: 50+ Years Completed 05/29/2023, 02/21/2012 Hepatitis C Screening Completed 12/13/2023, 023 RSV Patients and Patients Aged 60 years or older Completed 12/15/2023 Anal Pap Discontinued HIB Vaccines Aged Out No longer eligi ble based on patient's age to complete this topic HPV Vaccines Aged Out No longer eligi ble based on patient's age to complete this topic Hepatitis A Vaccines Discontinued IPV Vaccines Aged Out No longer eligi ble based on patient's age to complete this topic Meningococcal B Vaccine Aged Out No l onger eligible based on patient's age to complete this topic Meningococcal Vaccine Aged Out No jareth donavon eligible based on patient's age to complete this topic RSV under 20 months Aged Out No longe r eligible based on patient's age to complete this topic Rotavirus Vaccines Aged Out No longer eligible based on patient's age to complete this topic Goals Goal Patient Goal Type Associated Problems Recent Progress Patient-Stated? Author Quit using tobacco (cigarettes, smokeless, etc) Tobacco Use On track(03/20/20 12:21 PM EST) No David Bruner, ZacharyD Procedures Procedure Name Priority Date/Time Associated Diagnosis Comments LDCT LUNG SCREENING Routine 01/01/2025 1 :10 PM EDT PERIODIC ORAL EVALUATION - ESTABLISHED PATIENT Routine 12/25/2024 10:00 AM EDT Tooth abrasion Missing teeth, acquired Excessive attrition of teeth, limited to enamel Staining of multiple teeth Abfraction Generalized gingival recession Dental plaque Encounter for dental examination ORAL HYGIENE INSTRUCTIONS Routine 12/25/2024 10:00 AM EDT Tooth abrasion Missing teeth, acquired Excessive attrition of teeth, limited to enamel Staining of multiple teeth Abfraction Generalized gingival recession Dental plaque CASE PRESENTATION, DETAILED AND EXTENSIVE TREATMENT PLANNING Routine 12/25/2024 10:00 AM EDT Tooth abrasion Missing teeth, acquired Excessive attrition of teeth, limited to enamel Staining of multiple teeth Abfraction Generalized gingival recession Dental plaque PROPHYLAXIS - ADULT Routine 12/25/2024 1 0:00 AM EDT Dental plaque TOPICAL APPLICATION OF FLUORIDE VARNISH Routine 12/25/2024 10:00 AM EDT Tooth abrasion Missing teeth, acquired Excessive attrition of teeth, limited to enamel Staining of multiple teeth Abfraction Generalized gingival recession Dental plaque BITEWINGS - 4 RADIOGRAPHIC IMAGES Routine 06/25/2024 10:00 AM EST Abfraction Staining of multiple teeth Dental calculus HEPATITIS C AB W/REFL TO HCV RNA, QN, PCR Routine 12/13/2023 8:23 AM EDT Immunity status testing LIPID PANEL WITH REFLEX TO DIRECT LDL Routine 12/13/2023 8:23 AM EDT Dyslipidemia INTRAORAL - COMPLETE SERIES OF RADIOGRAPHIC IMAGES Routine 02/08/2023 1:00 PM EDT Missing teeth, acquired Dental caries Generalized gingival recession HM COLONOSCOPY Routine 02/16/2018 from Last 3 Months or Most Recently Relevant to Health Maintenance Results * CT Lung Screening Low dose (01/01/2025 1:10 PM EDT) Anatomical Region Laterality Modality Lung Computed Tomogra phy 01/01/2025 1:10 PM EDT Narrative 01/01/2025 1:46 PM EDT [place] [address] CT Scan Report Signed Patient: Iván Andres MR#: [id number] : 1960 Acct:[id number] Age/Sex: 64 / M ADM Date: 01/01/25 Loc: HO.CT Attending Dr: Lily Rodriguez PA-C Ordering Physician: Lily Rodriguez PA-C Date of Service: 01/01/25 Procedure(s): CT lung screening Accession Number(s): [id number] cc: Lily Rodriguez PA-C; Allie Lyons MD Report Number: [id number]: Total DLP = 0.00 mGy-cm EXAMINATION: CT LUNG SCREENING HISTORY: F17.210 - Nicotine dependence, cigarettes, uncomplicated TECHNIQUE: Low dose axial images were obtained from the sternal notch to upper abdomen without IV contrast per standard departmental protocol. Sagittal and coronal reformatted images were also obtained and reviewed. One or more of the following techniques was used for dose reduction: Automated exposure control, adjustment of the mA and/or kV according to patient size, use of iterative reconstruction technique. DLP: 58 mGy-cm COMPARISON: Comparison is made with the prior examination dated . FINDINGS: Lung nodules: Again seen are scattered calcified granulomas throughout the lungs. The largest of these is at the right lung base (series 4, image 114). No suspicious pulmonary nodules are identified. Emphysema: none Coronary Calcification: mild Aortic Arch Calcification: mild Potentially Significant Incidentals : none Additional Chest Findings: There is no pleural or pericardial effusion. No mediastinal or axillary lymphadenopathy is identified. Visualized upper abdomen: There is a probable 1.4 cm cyst in the left lobe of the liver. The visualized portions of the spleen and and adrenals have an unremarkable unenhanced appearance. CT/CT lung screening IMPRESSION: No suspicious pulmonary nodules are identified. LUNG-RADS ASSESSMENT: Lung-RADS 2: Benign MANAGEMENT: Continue annual screening with LDCT in 12 months Category S: N/A Electronically signed by: Dinesh Cook MD 01/01/2025 01:43 PM EDT RP Dictated By: Dinesh Cook MD Signed By: <Electronically signed by Dinesh Cook MD in OV> 01/01/25 1343 DD/ 1310 TD/TT: 01/01/25 1335 Automotive Shop Foreman: Procedure Note Donotuseinterpreter, Image - 01/01/[address] [place] [address] [address] Scan Report Signed Patient: Son Andres#: [id number] : 9Acct:[id number] Age/Sex: 64 / MADM Date: 01/01/25 Loc: HO.CT Attending Dr: Lily Rodriguez PA-C Ordering Physician: Lily Rodriguez PA-C Date of Service: 01/01/25 Procedure(s): CT lung screening Accession Number(s): [id number] cc: Lily Rodriguez PA-C; Allie Lyons MD Report Number: [id number]: Total DLP = 0.00 mGy-cm EXAMINATION: CT LUNG SCREENING HISTORY: F17.210 - Nicotine dependence, cigarettes, uncomplicated TECHNIQUE: Low dose axial images were obtained from the sternal notch to upper abdomen without IV contrast per standard departmental protocol. Sagittal and coronal reformatted images were also obtained and reviewed. One or more of the following techniques was used for dose reduction: Automated exposure control, adjustment of the mA and/or kV according to patient size, use of iterative reconstruction technique. DLP: 58 mGy-cm COMPARISON: Comparison is made with the prior examination dated 723. FINDINGS: Lung nodules: Again seen are scattered calcified granulomas throughout the lungs. The largest of these is at the right lung base (series 4, image 114). No suspicious pulmonary nodules are identified. Emphysema: none Coronary Calcification: mild Aortic Arch Calcification: mild Potentially Significant Incidentals : none Additional Chest Findings: There is no pleural or pericardial effusion. No mediastinal or axillary lymphadenopathy is identified. Visualized upper abdomen: There is a probable 1.4 cm cyst in the left lobe of the liver. The visualized portions of the spleen and and adrenals have an unremarkable unenhanced appearance. CT/CT lung screening IMPRESSION: No suspicious pulmonary nodules are identified. LUNG-RADS ASSESSMENT: Lung-RADS 2: Benign MANAGEMENT: Continue annual screening with LDCT in 12 months Category S: N/A Electronically signed by: Dinesh Cook MD 01/01/2025 01:43 PM EDT Dictated By: Dinesh Cook MD Signed By: <Electronically signed by Dinesh Cook MD in OV> 01/01/25 1343 DD/ 1310 TD/TT: 01/01/25 1335 [employer]otive Shop Foreman: us [facility] External Provider IMG CT PROCEDURES Final Result * (ABNORMAL) Lipid Panel with Reflex to Direct LDL (12/13/2023 8:23 AM EDT) Triglycerides 82 <150 mg/dL [facility] Comment:Desirable Triglyceri de: less than 150 mg/dLBorderline High Triglyceride 150-199 mg/dLHigh Triglyceride: 200-499 mg/dLVery High Triglyceride: greater than or equal to 5OO mg/dL Cholesterol 169 <200 mg/dL [facility] Comment:Desirable Cholestero l: less than 200 mg/dLBorderline High Cholesterol: 200-239 mg/dLHigh Cholesterol: greater than 239 mg/dL LDL Cholesterol Calculated 103(H) <100 mg/dL [facility] Comment:Desirable LDL: less than 100 mg/dLNear Optimal/Above Optimal LDL: 110- 129 mg/dLBorderline High LDL: 130-159 mg/dLHigh LDL: 160-189 mg/dLVery High LDL: greater than or equal to 190 mg/dL HDL Cholesterol 50 >40 mg/dL [facility] Comment:Desirable HDL: great er than 40 mg/dL Note: This HDL assay may give artificially low results in patients with liver disease. Blood 12/13/2023 8:23 AM EDT 12/13/2023 11:14 AM EDT Allie Lyons MD LAB BLOOD ORDERABLES Final Resul t Performing Organization Address [facility] Co de Phone Number [facility] [address] [place] [phone] * Hepatitis C Antibody with Reflex to HCV, RNA, Quantitative, Real-Time PCR (12/13/2023 8:23 AM EDT) Hepatitis C Antibody Nonreactive Nonreactive [facility] Comment:Antibodies to HCV no t detected; does not exclude early acuteHCV infection. Blood Venous blood specimen / Unknown 12/13/2023 8:23 AM EDT 12/13/2023 11:14 AM EDT Allie Lyons MD LAB BLOOD ORDERABLES Final Resul t Performing Organization Address [facility]/ZIP Co de Phone Number [facility] [address] [place] [phone] * Hm Colonoscopy (02/16/2018) Colonoscopy Normal Normal 02/16/2018 Historical Provider HEALTH MAINTENANCE Edited Result - Final from Last 3 Months or Most Recently Relevant to Health Maintenance Insurance [employer] (HMO D-SNP) [facility] Care Teams Sign Painter Relationship Specialty Start Date End Date Allie Lyons MD [address] [place] [address] PCP - General Family Medicine 05/08/18 David Bruner, ZacharyD [address] [place] [address] Pharmacist Internal Medicine 03/20/23
--- OUTSIDE RECORDS SUMMARY | 2025-01-20 08:13 | XMS_ITS | Encounter Summary ---
Author Organization [employer] Address [address] [place] [address] [address] [place] [address] Care Team Providers Care Panama Hat Blocker Name Role Phone Allie Lyons MD Primary Care Provider [phone] David Bruner PharmD Unavailable [phone] Encounter Details Date Type Department Care Team (Late st Contact Info) Description 06/15/[address] [facility] [address] [place] [address] Saba Webb LPN Social History Tobacco Use [...] Description 01/28/2025 10:45 AM EDT Office [address] [facility] MEDICINE [address] [place] [address] Allie Lyons MD [address] [place], [place] [phone] 01/29/2025 9:00 AM EDT Office Visit [facility] ADULT DENTAL [address] [place] [address] Haresh Coreas DDS [address] [place], [place] [phone] 07/01/2025 1:00 PM EST Office Visit [facility] [address] [place] [address] Tran Ramos [address] [place] [address] documented as of this encounter Visit Diagnoses Not on filedocumented in this encounter Care Teams Panama Hat Blocker Relationship Specialty Start Date End Date Allie Lyons MD [address] [place] [address] PCP - General Family Medicine 05/08/18 David Bruner, Ramu [address] [place] [address] Pharmacist Internal Medicine 03/20/23 documented as of this encounter
--- OUTSIDE RECORDS SUMMARY | 2025-01-20 08:13 | XMS_ITS | Encounter Summary ---
Author Organization [employer] Address [address] [place] [address] [address] [place] [address] Care Team Providers Care Cutter Operator Helper Name Role Phone Allie Lyons MD Primary Care Provider [phone] David Bruner PharmD Unavailable [phone] Encounter Details Date Type Department Care Team (Latest Contact Info) Description 07/08/2020 Abstract [facility] CONVERSIONS Dental, Provider, DDS Social History Tobacco [...] Description 01/28/2025 10:45 AM EDT Office Visit [facility] MEDICINE [address] [place] [phone] Allie Lyons MD [address] [place] [address] 01/29/2025 9:00 AM EDT Office Visit [facility] ADULT DENTAL [address] [place] [address] Haresh Coreas DDS [address] [place] [address] 07/01/2025 1:00 PM EST Office Visit [facility] ADULT DENTAL [address] [place] [address] Rachel, Tran [address] [place] [address] documented as of this encounter Visit Diagnoses Not on filedocumented in this encounter Care Teams Cutter Operator Helper Relationship Specialty Start Date End Date Allie Lyons MD [address] [place] [address] PCP - General Family Medicine 05/08/18 David Bruner, ZacharyD [address] [place] [address] Pharmacist Internal Medicine 03/20/23 documented as of this encounter
[2025-01-20 11:37] LABS: Hemoglobin A1C 125.8666 umol/L; Total Hemoglobin (HGBA1C) 3372.4477 umol/L
[2025-01-20 12:03] LABS: Alanine Aminotransferase 21 U/L (0-40); Albumin Level 4.1 g/dL (3.5-5.0); Alkaline Phosphatase 73 U/L (39-117); Anion Gap 10 (12-20); Aspartate Amino Transferase 26 U/L (5-37); Blood Urea Nitrogen 11 mg/dL (9-16); Calcium 9.2 mg/dL (8.4-10.2); Carbon Dioxide 29 mmol/L (22-29); Chloride 108 mmol/L (96-108); Cholesterol 175 mg/dL (<200); Estimated Glomerular Filt Rate > 60; HDL Cholesterol 52 mg/dL (>40); Potassium 4.1 mmol/L (3.3-5.1); Sodium 143 mmol/L (135-145); Total Protein 6.7 g/dL (6.5-8.0); Triglycerides 80 mg/dL (<150)
[2025-01-20 12:20] LABS: Reflex LDLD? No
== END 2025-01-20 08:05 | disposition home or self-care (01) ==
LOC: HO.HHCL 08:04
PROVIDERS: PCP Family Medicine; Visit Provider Family Medicine
DX: Z13.1 Encounter for screening for diabetes mellitus (principal); E78.5 Hyperlipidemia, unspecified
CPT/HCPCS: 36415; 80053; 80061; 83036